=== PATIENT | male | born 1945 | race American Indian/Alaskan Native ===

== ENCOUNTER 2018-08-01 09:12 | Day surgery (SDC) | payer OTHER ==
[2018-08-01 10:45] VITALS: BMI 26.6
--- NOTE | 2018-08-01 11:29 | CP.SDSHP ---
Same Day Surgery H & P - History Proposed Procedure: colonoscopy Pre-Op Diagnosis: screening - Previous Medical/Surgical History Cardiac: Hypertension, ASHD/CAD Endocrine/Metabolic: Diabetes - Allergies Allergies: Allergies No Known Allergies Allergy (Verified 07/31/18 08:15) - Physical Exam General Appearance: NAD Vital Signs: Vital Signs 08/01/18 10:26 Temperature 98.6 F Pulse Rate 66 Respiratory 18 Rate Blood Pressure 144/73 O2 Sat by Pulse 96 Oximetry Mental Status: Alert & Oriented x3 Neuro: WNL Heart: WNL Lungs: WNL GI: WNL - {Optional Preform as Required} Abdomen: WNL - Impression Pt. Evaluated Today:Candidate for Anesthesia & Procedure: Yes - Date & Time Date: 08/01/18 Time: 11:29 Short Stay Discharge - Short Stay Discharge Admitting Diagnosis/Reason for Visit: SCREENING Disposition: HOME/ ROUTINE Referrals: Levar Salazar MD [Primary Care Provider] -
[2018-08-01] MEDS ORDERED: Lactated Ringer's 500 ML IV SCH (11:30)
[2018-08-01] MEDS ORDERED: Propofol 10 mg/ml Inj (20 ML) ONE (11:34)
[2018-08-01] MEDS ORDERED: Lidocaine Hydrochloride 5 ML INJ ONE (11:41)
[2018-08-01 12:29] VITALS: TEMP 98.2
[2018-08-01 13:05] VITALS: BP 122/86; PULSE 58; RESP 11; O2SAT 99
--- NOTE | 2018-08-02 12:01 | CARD ---
APPROVED REPORT Date of service: 08/01/2018 EKG Measurement Heart [id number] <Conclusion> Normal sinus rhythm Possible Left atrial enlargement Nonspecific T wave abnormality Abnormal ECG
== END 2018-08-01 14:20 | disposition home or self-care (01) ==
LOC: C.ENDO 09:12
PROVIDERS: ATTEND Internal Medicine Gastroenterology
DX: Z12.11 Encounter for screening for malignant neoplasm of colon (principal); D12.0 Benign neoplasm of cecum; K64.8 Other hemorrhoids
CPT/HCPCS: 45384; 82948; 88305; 93005; J2704; J7120